=== PATIENT | male | born 1965 | race Caucasian/White ===

== ENCOUNTER 2019-03-21 07:02 | Emergency (ER) | payer SELFPAY ==
[~2019-03-21] VITALS: Ht 177.8 cm; Wt 77.3 kg
[2019-03-21 07:15] VITALS: BP 140/78; TEMP 97.9
[2019-03-21] MEDS ORDERED: FLEXERIL 1010 MG/TAB PO (08:08)
[2019-03-21] MEDS ORDERED: PROZAC 10MG10 MG (08:33)
[2019-03-21] MEDS ORDERED: TENORMIN 2525 MG/TAB PO (08:33)
[2019-03-21 08:35] VITALS: PULSE 70
== END 2019-03-21 08:35 | disposition home or self-care (01) ==
LOC: COL.ER 07:02
DX: S33.9XXA Sprain of unspecified parts of lumbar spine and pelvis, initial encounter (principal); I10 Essential (primary) hypertension; F17.210 Nicotine dependence, cigarettes, uncomplicated
CPT/HCPCS: J1885; J2360